=== PATIENT | female | born 1980 ===

== ENCOUNTER 2016-09-24 20:29 | Emergency (ER) | payer OTHER ==
[2016-09-24 20:35] VITALS: BP 118/82; PULSE 84; RESP 16; TEMP 97.8; O2SAT 100
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
--- NOTE | 2016-09-25 09:03 | RAD ---
PROCEDURE: Cervical Spine Radiographs. HISTORY: Pain. COMPARISON: None. FINDINGS: BONES: Alignment maintained. No fracture. Dens Intact. DISC SPACES: Normal. SOFT TISSUES: Normal. No prevertebral soft tissue swelling. OTHER FINDINGS: None. IMPRESSION: Normal cervical spine radiographs
== END 2016-09-24 21:42 | disposition home or self-care (01) ==
LOC: H.ER 20:29
DX: M54.9 Dorsalgia, unspecified (principal); V43.52XA Car driver injured in collision with other type car in traffic accident, initial encounter; Y92.410 Unspecified street and highway as the place of occurrence of the external cause